=== PATIENT | male | born 1995 | race Caucasian/White ===

== ENCOUNTER 2017-09-17 14:05 | Emergency (ER) | payer BC, OTHER ==
[~2017-09-17] VITALS: Ht 185.4 cm; Wt 79.6 kg
[2017-09-17 14:08] VITALS: TEMP 37; Ht 185.4 cm; Wt 79.6 kg
[2017-09-17] MEDS ORDERED: GI COCKTAIL PO STA (14:22)
--- NOTE | 2017-09-17 14:27 | EMERGENCY ROOM VISIT NOTE ---
History First contact with patient: 14:14 Chief Complaint: FEVER Stated Complaint: FEVER,CHILLS,CHEST PAIN,COUGHING,BLOODY NOSE History of Present Illness The patient is a 22 year old male who presents to the Emergency Room via private vehicle accompanied by female with complaints of "fever, chills, chest pain, coughing, bloody nose". The patient states that 2 days ago he woke up with head pressure, sore throat and cough. He states that he is coughing so much another little specks of blood in his sputum. It is also yellow in nature. He was seen yesterday at [facility] and given Augmentin and Tessalon Perles. He states that numerous people at work have been diagnosed with bronchitis and laryngitis. He states that when he goes to bed and wakes up and feels as though his throat is swelling. He is a burning sensation when he coughs and in the middle of his chest since the symptoms began. He states that he has gotten worse in regard to the sore throat since he was seen yesterday. He notes he did have a little bit of suprapubic abdominal pain this has subsided. He did receive his childhood vaccinations. Review of Systems A complete 6-point Review of Systems was discussed with the patient, with pertinent positives and negatives listed in the History of Present Illness. All remaining Review of Systems questions can be considered negative unless otherwise specified. Past Medical/Surgical History Hernia surgery Family History Uncontributory Social History Smoking Status: Never Smoker Patient is employed and lives locally. Current/Historical Medications Scheduled Amoxicillin & Pot Clavulanate (Augmentin 875-125 mg), 1 TAB PO BID Benzonatate (Tessalon Perles), 100 MG PO TID Physical Exam Vital Signs Date Time Temp Pulse Resp B/P (MAP) Pulse Ox O2 Delivery O2 Flow Rate FiO2 09/17/17 15:54 81 20 126/76 100 09/17/17 14:08 37.0 100 18 132/89 97 Room Air Physical Exam VITAL SIGNS - Vital signs and nursing notes were reviewed. Stable. GENERAL -22-year-old male appearing his stated age who is in no acute distress. Nontoxic. Communicates well with provider and answers questions appropriately. SKIN - Without rashes. No petechiae or meningeal rash. HEAD - NC/AT. EYES - PERRL with EOMI bilaterally. Sclera anicteric. No hyphema. EARS - No deformities of external structures noted on gross examination bilaterally. No pain elicited with palpation of the tragus bilaterally. External auditory canals without discharge or otorrhea. Tympanic membranes pearly lam without retraction or bulging. No fluid or purulent material visualized behind the TM. Handle of malleus, umbo, cone of light, pars tensa/ flaccid all easily visualized. Slight erythema to the left your overall intracanal-vines. NOSE - Midline and without cyanosis. No epistaxis or purulent drainage noted. MOUTH/OROPHARYNX - Without perioral cyanosis. Buccal mucosa pink and moist and without leukoplakia. Tongue midline with equal elevation of palate bilaterally. No tonsillar hypertrophy, erythema, or exudates noted. Fair dentition. NECK - Neck with FROM. Supple to palpation. Minimal anterior cervical lymphadenopathy noted. No nuchal rigidity. LUNGS - Chest wall symmetric without accessory muscle use, intercostals retractions, or central cyanosis. Normal vesicular breath sounds CTA B/L. No wheezes, rales, or rhonchi appreciated. CARDIAC - RRR with S1/S2. No murmur, rubs, or gallops appreciated. Medical Decision & Procedures ER Provider Diagnostic Interpretation: CHEST 2 VIEWS ROUTINE CLINICAL HISTORY: cough, aches dyspnea COMPARISON STUDY: No previous studies for comparison. FINDINGS: The bones soft tissues and hemidiaphragms are normal. The cardiomediastinal silhouette is normal. The lungs are clear. The pulmonary vasculature is normal. IMPRESSION: Negative chest. The above report was generated using voice recognition software. It may contain grammatical, syntax or spelling errors. Electronically signed by: Kendrick Pathak M.D. 09/17/2017 3:33 PM Dictated Date/Time: 09/17/2017 3:33 PM Laboratory Results Test 09/17/17 14:25 Influenza Type A Antigen Neg for Influ A (NEG) Influenza Type B Antigen Neg for Influ B (NEG) Medications Administered Medications (Trade) Dose Ordered Sig/Kita Route Start Time Stop Time Status Last Admin Dose Admin Al Hydroxide/Mg Hydroxide (Maalox Susp) 30 ml STK-MED ONCE .ROUTE 09/17/17 14:35 09/17/17 14:36 DC 09/17/17 14:38 30 ML Lidocaine HCl (Viscous Lidocaine 2% Soln) 20 ml STK-MED ONCE .ROUTE 09/17/17 14:35 09/17/17 14:36 DC 09/17/17 14:38 20 ML Medical Decision Patient was seen and evaluated as above. He presents to us today with fever, chills, chest tightness, coughing and blood in the mucus from the nose and throat. He is well on exam. He is nontoxic. He converses without difficulty. He does not smoke. There is been no recent long travel, leg swelling or hormone use. His chance for pulmonary embolism is very low. Although the coughing does have a blood tinged sputum production I believe this is likely secondary to his airway irritation and not from a pulmonary embolism. Flu swab negative. Chest x-ray negative. Strep test negative. He was given a GI cocktail and feeling much better. The burning sensation in his chest was nearly alleviated. He'll be given a home pack with a 4 day supply. This is one 24 mL dose every 24 hours. He is to follow with family doctor regarding his symptoms here today. He may continue the Augmentin he was previously prescribed as well as a Tessalon pearls. I suspect he is likely experiencing a viral URI. 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 He was educated upon management, educated upon worrisome symptoms in which to return, had questions about discharge, and was discharged home in good condition. To further discuss reasons why PE workup was not continued, he was reevaluated and pulse was 81, and his pulse ox is 100%. Again as noted above, I believe that the blood- tinged sputum which was not even present during his evaluation here, is likely from irritation secondary to the persistent cough and sore throat. It is also important to note that his symptoms began as constitutional symptoms, and presented such. It is only been for 2 days. In evaluation treatment this patient following differential diagnoses retained: Pharyngitis, viral URI, pneumonia, PE, [place], among others. Impression Primary Impression: Viral URI with cough Departure Information Dispostion Home / Self-Care Condition GOOD Patient Instructions My [facility] Additional Instructions You were seen in the emergency department for your sore throat, cough and congestion. The results of your rapid strep screen were found to be NEGATIVE. You will be contacted in 48-72 hrs if the results of your culture are found to be positive and any change in antibiotics is necessary. You were prescribed Augmentin to be taken every 12 hours yesterday. This is an antibiotic. All antibiotics have the potential to cause diarrhea. Stop this medication and contact a medical provider if you were to develop any significant adverse side effects including: wheezing, shortness of breath, passing out, vomiting, or a diffuse rash. Always take antibiotics as directed and COMPLETE the ENTIRE course regardless of the improvement of your symptoms. For pain and fever control, you can use the following [id number] medicines (if >12 yo): - Regular strength (325mg/tab) Tylenol (acetaminophen) 2 tabs every 4-6 hours as needed. Do not exceed 12 tablets in a 24 hour period. Avoid taking more than 3 grams (3000 mg) of Tylenol per day. This includes any other sources of acetaminophen you may take on a regular basis. - Regular strength (200 mg/tab) Advil (ibuprofen) 1-2 tabs every 4-6 hours as needed. Do not exceed a dose of 3200 mg per day. GI COCKTAIL, 24ml every 12 hours for your sorethroat. - For best results, alternate dosing of Tylenol and Advil. In addition to your prescribed medications, you can also use the following home remedies: - Warm salt-water gargles 3 times per day can soothe your throat and help to fight infection. - Warm tea with honey can soothe your throat. Return to the emergency department if your symptoms persist or worsen over the next 2-3 days despite treatment course outlined above. Return to the emergency department if you develop the following symptoms of: inability to swallow solids , liquids, or drool; excessive wheezing or inability to catch your breath; or intractable fever or pain. Follow up with your primary care provider in 2-3 days from today's emergency department visit.
[2017-09-17] MEDS ORDERED: ALUMINUM/MAGNESIUM SUSP 30 ML UDC ONE (14:35)
[2017-09-17] MEDS ORDERED: LIDOCAINE HCL 2% VISC SOLN 20 ML UDC ONE (14:35)
[2017-09-17] MEDS ORDERED: AMOX875T PO (14:44)
[2017-09-17] MEDS ORDERED: BENZ100C84 PO (14:44)
[2017-09-17 15:12] LABS: INFLUENZA B ANTIGEN Neg for Influ B (NEG)
--- NOTE | 2017-09-17 15:34 | DIAGNOSTIC IMAGING REPORT ---
CHEST 2 VIEWS ROUTINE CLINICAL HISTORY: cough, aches dyspnea COMPARISON STUDY: No previous studies for comparison. FINDINGS: The bones soft tissues and hemidiaphragms are normal. The cardiomediastinal silhouette is normal. The lungs are clear. The pulmonary vasculature is normal. IMPRESSION: Negative chest. The above report was generated using voice recognition software. It may contain grammatical, syntax or spelling errors. Electronically signed by: Kendrick Pathak M.D. 09/17/2017 3:33 PM Dictated Date/Time: 09/17/2017 3:33 PM
[2017-09-17 15:54] VITALS: BP 126/76; PULSE 81; O2SAT 100
[2017-09-17] MEDS ORDERED: ALUMINUM/MAGNESIUM SUSP 72 ML, LIDOCAINE HCL 2% VISCOUS SOLN 24 ML, BARCODE IDENTIFIER ... PO PRN ×2 (16:15)
== END 2017-09-17 16:30 | disposition home or self-care (01) ==
LOC: C.EDB 14:08
DX: J06.9 Acute upper respiratory infection, unspecified (principal); R05 Cough